=== PATIENT | male | born 1935 | race Caucasian/White ===

== ENCOUNTER 2016-08-28 15:07 | Outpatient (CLI) | payer MEDICARE, OTHER | END 2016-08-28 15:08 | disposition home or self-care (01) | DX: I10 Essential (primary) hypertension (principal); I71.00 Dissection of unspecified site of aorta ==

== ENCOUNTER 2016-10-30 08:29 | Outpatient (CLI) | payer MEDICARE, OTHER | END 2016-10-30 08:30 | disposition home or self-care (01) | DX: I10 Essential (primary) hypertension (principal); K20.9 Esophagitis, unspecified ==

== ENCOUNTER 2016-11-20 14:37 | Day surgery (SDC) | payer MEDICARE, OTHER ==
[2016-11-20] MEDS ORDERED: MIDAZOLAM 2 MG/2 ML VIAL IVP ONE (17:07)
[2016-11-20] MEDS ORDERED: fentaNYL 100 MCG/2 ML VIAL IVP ONE (17:07)
[2016-11-20] MEDS ORDERED: LIDO GARGLE 30 ML BOTTLE PO ONE (17:15)
[2016-11-20] MEDS ORDERED: BENZOCAINE/TETRACAINE/BUTAMBEN SPRAY 56 GM TOP ONE (17:15)
[2016-11-20] MEDS ORDERED: LACTATED RINGERS 1,000 ML IV ONE ×2 (17:16)
[2016-11-20 17:31] VITALS: BP 178/60
== END 2016-11-20 14:38 | disposition home or self-care (01) ==
LOC: SDS 14:37
PROVIDERS: ATTEND Surgery
PROC: 0DB38ZX Excision of Lower Esophagus, Via Natural or Artificial Opening Endoscopic, Diagnostic (ICD-10-PCS; principal; 2016-11-20 16:00)
DX: C15.5 Malignant neoplasm of lower third of esophagus (principal); E11.9 Type 2 diabetes mellitus without complications; I10 Essential (primary) hypertension; K21.9 Gastro-esophageal reflux disease without esophagitis; K91.2 Postsurgical malabsorption, not elsewhere classified; R12 Heartburn; Z79.84 Long term (current) use of oral hypoglycemic drugs; Z87.891 Personal history of nicotine dependence
CPT/HCPCS: 43239; A9270; J7120; 88305; 88341; 88342; 88360

== ENCOUNTER 2016-11-23 12:39 | Outpatient (CLI) | payer MEDICARE, OTHER ==
[2016-11-23] MEDS ORDERED: IOVERSOL-300 50 ML VIAL PO ONE (14:55)
[2016-11-23] MEDS ORDERED: IOPAMIDOL-300 100 ML VIAL IVP ONE (14:55)
--- NOTE | 2016-11-23 17:05 | CT Report ---
CT OF THE CHEST WITH CONTRAST: 11/23/2016 CLINICAL INDICATION: Esophageal mass, biopsy-proven esophageal cancer, staging. TECHNIQUE: Axial CT images of the chest were obtained with 50 mL of Isovue-300 intravenously (renal d ysfunction). No previous CT is available for comparison. FINDINGS: The heart and great vessels demonstrate atherosclerotic calcification. There is calcified pleural plaquing, compatible with previous asbestos exposure. A mass is seen arising from the distal esophagus, measuring approximately 3.5 cm in diameter. There is a lymph node posterior to the trachea on the right side, at the level of T2, measuring 1.8 cm. The lungs demonstrate basilar fibrosis. The re is a noncalcified pulmonary nodule in the posterior right upper lobe, measuring 11 x 8 mm, suspici ous for pulmonary metastatic disease. No effusion or pneumothorax is present. The osseous structures demonstrate degenerative changes. IMPRESSION: DISTAL ESOPHAGEAL MASS, WITH ADENOPATHY AT THE THORACIC INLET AND RIGHT PULMONARY NODULE , LIKELY REPRESENTING METASTATIC DISEASE. In accordance with CT protocol optimization, one or more of the following dose reduction techniques w ere utilized for this exam: automated exposure control, adjustment of mA and/or KV based on patient size, or use of iterative reconstructive technique. JOB #: [id number] EXT JOB #:[id number]
--- NOTE | 2016-11-23 17:09 | CT Report ---
CT ABDOMEN AND PELVIS WITH CONTRAST: 11/23/2016 CLINICAL INDICATION: Esophageal cancer staging. Axial CT images of the abdomen and pelvis were obtained with 50 mL Isovue-300 intravenously (renal dy sfunction) as well as oral contrast. In accordance with CT protocol optimization, one or more of the following dose reduction techniques w ere utilized for this exam: automated exposure control, adjustment of mA and/or KV based on patient size, or use of iterative reconstructive technique. Please also refer to separate CT of the chest of the same day. ABDOMEN: There is retroperitoneal adenopathy present, with the largest node, at the level of the bolivar phragm just to the left of the aorta measuring 2.8 x 1.9 cm, compatible with metastases. There is a hypodense lesion in the posteromedial right lobe of the liver, measuring 4.3 x 3.1 cm, and a hypodens e lesion in the inferior right lobe of the liver, measuring 1.9 x 1.7 cm, both suspicious for hepatic metastases. The kidneys demonstrate cortical atrophy and cysts. The spleen appears unremarkable as does the pancreas and adrenal glands. The gallbladder is not dilated. No bowel dilatation, free ga s, or free fluid is present. An abdominal aortic stent graft is in place. PELVIS: Sigmoid diverticulosis is present, without CT evidence of diverticulitis. No pelvic adenopa thy or free fluid is present. Osseous structures demonstrate degenerative changes. IMPRESSION: HEPATIC LESIONS AND RETROPERITONEAL ADENOPATHY, COMPATIBLE WITH METASTATIC DISEASE. JOB #: [id number] EXT JOB #:[id number]
== END 2016-11-23 12:40 | disposition home or self-care (01) ==
LOC: DI 12:39
PROVIDERS: ATTEND Surgery
DX: K22.9 Disease of esophagus, unspecified (principal); R91.1 Solitary pulmonary nodule; R59.0 Localized enlarged lymph nodes; K76.9 Liver disease, unspecified
CPT/HCPCS: 71260; 74177; Q9967

== ENCOUNTER 2016-12-27 10:46 | Outpatient (CLI) | payer MEDICARE, OTHER ==
--- NOTE | 2016-12-27 20:12 | CONSULTATION NOTE ---
DATE OF CONSULTATION: 12/27/2016 00:00:00 REQUESTING PROVIDER: Rob Hammond MD. TIME OF VISIT: 11:45-12:45. TOPIC: Initial palliative care consult. Thank you for asking the palliative care consult service to be involved in the care of your patient. I am asked to provide support for pain and symptom management, as well as goals of care. HISTORY OF PRESENT ILLNESS: This is a 81-year-old gentleman who has developed over the last few month s increasing difficulty with worsening dysphagia and difficulty tolerating solid food. He lost about 30 pounds in the three months. He underwent upper endoscopy with Dr. Bah on 11/20/2016 which lindsay wed nearly complete obstruction of the lower esophagus with biopsy that showed poorly differentiated adenocarcinoma. In further staging he was found to have a mass in the distal esophagus, adenopathy po sterior to the trachea, right upper lower lobe nodule, retroperitoneal adenopathy with node measuring 2.8 x 1.9 cm size at the level of the diaphragm, which is interesting where he has most of his pain. He also has liver metastasis with 2 lesions on the left 4 x 3 x 3.1 cm and in the right inferior lob e 1.9 x 1.7. He has had actually fairly good health. Previous to this, he used to walk about a mile b ut quit several years ago related to pain in his right hip. He has struggled with diabetes, though, c urrently with his weight loss, his blood sugars have been in the 80s and 90s. We are meeting for the first time today to talk about his pain, symptom management and support needs. Mostly focused on buil ding rapport, as well as looking at things that might be of support for quality of life. PAST MEDICAL HISTORY: Includes hypertension, diabetes, frequent reflux, history of a stomach ulcers, diverticulitis. PAST SURGICAL HISTORY: Includes surgery to a benign tumor in 1995, repair of a AAA about 4-5 years ag o with a stent. ALLERGIES: NO KNOWN ALLERGIES. CURRENT MEDICATIONS: Current medications are somewhat minimal at this point in time. 1. He gets a testosterone injection once a month. 2. He has ondansetron 8 mg 1 tab q.8h. ODT available for nausea. 3. Uses Miralax for constipation. 4. Recently was started on morphine 20 mg/ml 0.25 ml which = 5 mg for pain. SYMPTOM BURDEN: The patient does report pain. It is mostly located actually on the left side. He feel s like "it is coming through my ribs." This is fairly persistent in nature, though he only takes his medications intermittently. Of note, he has actually gotten relief with Tylenol. He has used the morp esther 5 mg, but perceives that he gets sedated on this. He has been able to sleep as his anxiety has d iminished. He does report fatigue with his weight loss, his activity tolerance has gone down. He parveen es any nausea. He has had vomiting in the past and this is more attributed to his obstructive symptom s. He has had intermittent constipation. He does perceive himself as somewhat depressed and tearful. Continues with some anxiety and is somewhat concerned currently around his quality of life. SOCIAL HISTORY: He is to Brynn, they have been 59 years. 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 He was having lung problems with that and quit. He was having increased shortness of breath and cough and changes. He then retired to [place] to help his 's mother on the farm where the y continue to live. He has worked for the [employer] but has been retired over 16 years. 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 His herself underwent treatment for breast cancer, so [facility]. They do have 3 sons, 2 of which live in the neighborhood are quite supportive. The other one [place] with grandchildren and great grandchildren. They are very close and have a close community of friends. FAMILY HISTORY: Father of heart attack at 62. Mother at 96 of old age. He does have a histo ry of aunts with cancer and his brother of cancer, supposedly from exposure to Agent [place]. REVIEW OF SYSTEMS: The patient does report 30 pound weight loss over 2 to 3 months. He is currently a t 163, his baseline is 190. He reports fatigue. Denies headaches, no night sweats. EYES: He does wear glasses. ENT: He does have hearing loss. CARDIOVASCULAR: Has a history of hypertension. No history of swelling and has tried blood pressure me dication in the past. Currently not on anything. RESPIRATORY: He does have shortness of breath with activity. GASTROINTESTINAL: He is currently on a liquid diet, mostly on Ensure, has added mashed potatoes with butter. He is starting to regain some weight, has not had any further obstructive vomiting. He does h ave some intermittent constipation for which he uses prune juice. GENITOURINARY: He has frequent urination, but no pain. He is up a couple times a night. MUSCULOSKELETAL: He does have some weakness. 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 SKIN: Denies any problems. NEUROLOGIC: Denies numbness or tingling, dizziness, headache. PSYCHIATRIC: Does admit to depression and anxiety. ENDOCRINE: He has had diabetes, though this is doing much better and was managed on metformin before. HEMATOLOGIC/IMMUNOLOGIC: Has not had any recent infections. He will be getting iron transfusions. PERFORMANCE STATUS: The patient currently is able to manage all his ADLs. He still works in the [employer] and does his projects. He has had decrease in intake, but this is improving. I would put him at a [facility] performance status at 80%. PALLIATIVE CARE DISCUSSION: Who is present, myself, the patient and his , Brynn. The patient is somewhat suspect of palliative care. I did spend some time explaining regarding the role as far as pardo pport for pain and symptom management and supporting them through this time of difficult decision german ing and for emotional support for both he and her. Did acknowledge their feelings of vulnerability, s adness and distress. They are of course "hoping for a miracle" and we did discuss about hoping for th e best, but also looking at things that might be of support in preparation in case of the worst. I di d not venture into advanced directives, but more into what is most important to them, which at this p oint in time is family investing as much as they can into his treatment and trying to stay positive. 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 He is just now starting the palliative chemotherapy with the hope for improving quality and quantity of life. Is welcoming of palliative care support at this point in time. RECOMMENDATIONS/COUNSELING DONE: 1. Pain of neoplastic origin. I suspect his pain etiology is most likely the adenopathy from his desc ription noted at the diaphragm of left of the aorta appears where his location and intensity of that. He has no increased shortness of breath with this. Suspect it is a pressure or neuropathic in nature pain. I did instruct him for baseline since Tylenol was actually effective, he does have liquid Tyle nol to schedule t.i.d. 1000 mg of Tylenol for relief. He does not like being sedated. His goal is to be more awake and we also discussed using the morphine in juice as a barrier for him taking it as it is a bitter taste, I instructed to put it in just a little bit of cranberry or grape juice in a shot glass and take it that way. If he feels too sedated he can even take half of a 5 mg just a little bit more often for relief. Both he and his confirms understanding they do have 60 mL and no need fo r refill at this point in time. 2. 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 The patient was instructed on the need for goal of a bowel movement every day to use either half or full caps of MiraLax or if prune juice is effective to cont inue with this, but it is important given his early satiety and anorexia to continue with good bowel management. 3. Weight loss secondary to obstructive symptoms, the patient actually does fine with supplements. I did provide a prescription for Ensure at the [facility] to help support cost savings. I did encour age small frequent feedings. 4. Chemotherapy side effects. Did review the use of Imodium they had not picked up their hanl-ysn-[id number] nter medication yet regarding that. Also, instructed on ondansetron would be quite problematic if he did have vomiting given his current obstructive symptoms. 5. Coping with adjustment to illness. Normalized patient's feeling of vulnerability and feeling overw helmed that over at diagnosis and concerns about the uncertainty ahead. Psychosocial support was offe red. 6. Advanced care planning. Will defer this to a future visit. TIME SPENT: 60 minutes with greater than 50% of this done in counseling and coordination of care, ant icipatory guidance and instruction on pain and symptom management. JOB #: [id number] EXT JOB #:[id number]
== END 2016-12-27 10:47 | disposition home or self-care (01) ==
LOC: PC 10:46
PROVIDERS: ATTEND Nurse Practitioner Adult Health
DX: Z51.5 Encounter for palliative care (principal); G89.3 Neoplasm related pain (acute) (chronic); C15.5 Malignant neoplasm of lower third of esophagus; C78.7 Secondary malignant neoplasm of liver and intrahepatic bile duct; C78.00 Secondary malignant neoplasm of unspecified lung; K59.00 Constipation, unspecified; R63.4 Abnormal weight loss; E11.9 Type 2 diabetes mellitus without complications; M25.551 Pain in right hip; I10 Essential (primary) hypertension; K21.9 Gastro-esophageal reflux disease without esophagitis; Z87.11 Personal history of peptic ulcer disease; Z87.19 Personal history of other diseases of the digestive system; R11.0 Nausea; Z79.899 Other long term (current) drug therapy; F32.9 Major depressive disorder, single episode, unspecified; F41.9 Anxiety disorder, unspecified; R06.09 Other forms of dyspnea; R35.0 Frequency of micturition
CPT/HCPCS: 99205

== ENCOUNTER 2017-01-03 11:12 | Outpatient (CLI) | payer MEDICARE, OTHER ==
--- NOTE | 2017-01-03 22:51 | CONSULTATION NOTE ---
DATE OF CONSULTATION: 01/03/2017 00:00:00 REQUESTING PROVIDER: TIME OF VISIT: 11:45-12:30. TOPIC: Followup palliative care consult. Thank you for asking the palliative care consult service to be involved in the care of your patient. I am asked to provide support for pain and symptom management, as well as goals of care and transitio n planning. HISTORY OF PRESENT ILLNESS UPDATE: This is a 81-year-old gentleman who has stage IV esophageal cancer with metastatic disease to the liver and lung and likely bone. He is receiving palliative chemothera py including carboplatin /Taxol. He does have a partial esophageal obstruction, this continues to imp rove. He has actually gained about 4 pounds over this last week, though, I am somewhat concerned this may also include some fluid weight. He does present today with a fairly full abdomen, it is not taut , but he has developed some lower extremity edema about 1-2+ pitting, this is a new symptom for him. He though does report that his pain has been improving. His pain has been located on the left side, h ad attributed this most likely to his adenopathy. It had been persistent in nature and now it is res olved. He had been instructed to try nzshel-bye-plplq Tylenol. He had tried it when he got home after chemotherapy last week, and had attributed his dizziness, though, I suspect this is more related to his infusion and support meds. Currently, today, though he reports no pain. He actually has been taki ng the morphine 5 mg at bedtime, though he reports no discomfort. He dislikes the sedation from it. SYMPTOM BURDEN: The patient has had some fatigue, particularly in the last 24-48 hours. Of note, his hematocrit has dropped to 29.9, hemoglobin 10.0, RBCs 3.46 as well as his white count down to 2.3. He denies having experienced any nausea with his chemotherapy. This last week his appetite remains fair . He is still continuing on mostly liquid soft diet. He has had some shortness of breath over the las t 24 hours, but no cough. Please see palliative care discussion regarding depression and continues to hope for the best. He does report his constipation has been controlled with prune juice. SOCIAL HISTORY: He is to his , Brynn, they have been for 59 years. They have 3 s ons, are a very close family. He reports he tends to be somewhat of a loaner when asked as far as wha t kind of support he has. 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 REVIEW OF SYSTEMS: ENT: Denies sore throat. He does have mild hearing loss. CARDIOVASCULAR: Denies chest pain. RESPIRATORY: Denies cough, noted shortness of breath as above. GASTROINTESTINAL: Having regular bowel movements with prune juice and some early satiety. GENITOURINARY: No difficulty with voiding. MUSCULOSKELETAL: Some generalized overall weakness and stiffness. Does have osteoarthritis, particula rly in his right hip. INTEGUMENTARY: Does have a recent hematoma from a branch falling on his hand. The skin is not opened. NEUROLOGIC: Denies numbness or tingling but does have some cold sensation in his hands. PSYCHIATRIC: The patient does present with depressive symptoms and tearfulness. ENDOCRINE: No history of hypothyroidism or diabetes. HEMATOLOGIC/IMMUNOLOGIC: No recent infections. He is somewhat pancytopenic today. PHYSICAL EXAMINATION: GENERAL APPEARANCE: He does appear somewhat flushed. He is quite tearful. EYES: Normal on inspection. ENT: Mucous membranes moist. NECK: Trachea midline. No lymphadenopathy. RESPIRATORY: His breath sounds are clear. CARDIOVASCULAR: His pulse is regular rhythm at about 88. ABDOMEN: Somewhat full and rounded. Bowel tones distant. SKIN: His hands are quite cold to touch. Hematoma across the back of his palm. No open areas. EXTREMITIES: As noted above, he does have lower extremity edema of probably 1+ mid calf. His hands an d feet are cool to touch. PERFORMANCE STATUS: The patient is still managing to do most of his chores. He is experiencing some a ctivity tolerance. He is trying to continue with his garden and his projects and mowing his lawn. PALLIATIVE CARE DISCUSSION/WHO IS PRESENT: Myself, the patient and his , Brynn. The patient is q uite tearful today. We did discuss just acknowledging the difficulty of their journey this last few w eeks, his feelings of vulnerability and sadness, trying to normalize this for them. continues to kind of pipe up and say hoping for a miracle, the patient seems much more tender regarding this. The y do have an appointment upcoming on 01/09/[address] Fitzgerald for Port-A-Cath placement. His goal s are to try and hope for the best and continue on with his palliative chemotherapy. IMPRESSION: This is a lauren 81-year-old gentleman who has stage IV esophageal cancer with liver and lung mets starting on palliative chemotherapy. Does present with depressive symptoms and tearfulness today establishing rapport. RECOMMENDATIONS/COUNSELING DONE: 1. Pain of neoplastic origin. His pain does appear to have improved. He has not needed the Tylenol, b ut did recommend to use that for breakthrough pain. He does have some morphine, still has over a jeff le and a half left, but does continue to dislike the side effects of this. Does not present with the pain severity and needing this at this point in time. 2. Constipation, multifactorial in origin. They have got the MiraLax available, but currently being m anaged with the prune juice with decreased morphine intake. 3. Weight loss secondary to obstructive symptoms. He is currently on a liquid diet, is managing to ge t adequate calories and fluids and some soft food as far as mashed potatoes and soft boiled eggs. 4. Side effects from chemotherapy, currently has done well. Presents today with some pancytopenia and some increased fatigue and mild shortness of breath, but overall has tolerated this fine. 5. Depressive symptoms. Did counseling regarding depression, normalizing his current reaction to his situation. I did discuss if it remains persistent or pervasive that we can consider implementing an a ntidepressant if needed. Also recommended looking at ways that he has coped in the past. He has used his family. 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 Did discuss he can continue to process some of this during our meetings. TIME SPENT: 45 minutes with greater than 50% of this done in counseling and coordination of care, jordana ghing benefits and burdens of ongoing opiate therapy, management of depression, and anticipatory guid ance. JOB #: [id number] EXT JOB #:[id number]
== END 2017-01-03 11:13 | disposition home or self-care (01) ==
LOC: PC 11:12
PROVIDERS: ATTEND Nurse Practitioner Adult Health
DX: Z51.5 Encounter for palliative care (principal); G89.3 Neoplasm related pain (acute) (chronic); C15.9 Malignant neoplasm of esophagus, unspecified; C78.7 Secondary malignant neoplasm of liver and intrahepatic bile duct; C78.00 Secondary malignant neoplasm of unspecified lung; K59.00 Constipation, unspecified; Z79.899 Other long term (current) drug therapy; R60.0 Localized edema; R53.83 Other fatigue; R06.02 Shortness of breath; R68.81 Early satiety; R53.1 Weakness; M16.11 Unilateral primary osteoarthritis, right hip; D61.818 Other pancytopenia; R68.89 Other general symptoms and signs
CPT/HCPCS: 99215

== ENCOUNTER 2017-01-05 07:09 | Outpatient (CLI) | payer MEDICARE, OTHER | END 2017-01-05 07:10 | disposition home or self-care (01) | LOC: RT 07:09 | PROVIDERS: ATTEND Nurse Anesthetist, Certified Registered | DX: Z01.810 Encounter for preprocedural cardiovascular examination (principal); C15.9 Malignant neoplasm of esophagus, unspecified | CPT/HCPCS: 93005 ==

== ENCOUNTER 2017-01-09 09:31 | Day surgery (SDC) | payer MEDICARE, OTHER ==
[2017-01-09] MEDS ORDERED: LACTATED RINGERS 1,000 ML IV ONE ×2 (10:20→15:18)
[2017-01-09] MEDS ORDERED: MIDAZOLAM 2 MG/2 ML VIAL IVP ONE (14:30)
[2017-01-09] MEDS ORDERED: fentaNYL 100 MCG/2 ML VIAL IVP ONE (14:30)
[2017-01-09] MEDS ORDERED: PROPOFOL 200 MG/20 ML VIAL IVP ONE (14:30)
[2017-01-09] MEDS ORDERED: LIDOCAINE-MPF 2% 5 ML VIAL IM ONE (14:30)
[2017-01-09] MEDS ORDERED: BUPIVACAINE 0.5% PF 30 ML VIAL SUBQ ONE ×2 (14:59→15:03)
[2017-01-09] MEDS ORDERED: LIDOCAINE 1%-EPI 1:100000 30 ML MDV SUBQ ONE (15:01)
[2017-01-09 15:38] VITALS: BP 163/58
--- NOTE | 2017-01-09 15:43 | XRAY Report ---
INTRAOPERATIVE PORT PLACEMENT: 01/09/2017 CLINICAL INDICATION: Port placement. FINDINGS: Single intraoperative matrix image demonstrates a left-sided port terminating in the right atrium. Six seconds of fluoroscopy time was provided to Dr. Fitzgerald; one spot image obtained. IMPRESSION: DOCUMENTATION OF INTRAOPERATIVE IMAGING AND FLUOROSCOPY TIME. JOB #: [id number] EXT JOB #:[id number]
--- NOTE | 2017-01-09 17:33 | XRAY Report ---
FRONTAL CHEST: 01/09/2017 CLINICAL INDICATION: Postop Port-A-Cath placement. Frontal view of the chest demonstrates a normal cardiac silhouette. Left jugular port terminates in the right atrium. The cardiac silhouette is not enlarged. Pleural calcifications are present. No e ffusion or pneumothorax is present. IMPRESSION: LEFT JUGULAR PORT TERMINATING IN THE RIGHT ATRIUM. NO PNEUMOTHORAX. JOB #: [id number] EXT JOB #:[id number]
--- NOTE | 2017-01-10 10:51 | OPERATIVE REPORT ---
DATE OF SURGERY: 01/09/2017 00:00:00 PREOPERATIVE DIAGNOSIS: Esophageal cancer. POSTOPERATIVE DIAGNOSIS: Esophageal cancer. PROCEDURE: Port-A-Cath placement. SURGEON: Trina Fitzgerald MD Anesthesiologist: JUNI Kamara ANESTHESIA: Monitored Anes Care FINDINGS: After obtaining informed consent from patient, he was brought into the operating room and positioned on the operating table in the supine position , taking note of pressure points. He was administered sedation and 2 grams of Ancef. He was then prepped and draped in the usual sterile fashion, and a timeout was taken according to protocol. Local anesthetic 5 mL was inserted at the level of the left clavicle. The patient was positioned in Trendelenburg.Using the finder needle, the subclavian space was entered. However , I was not able to access the subclavian vein after 2 attempts. Under ultrasound guidance, I then turned my attention to the left IJ. The IJ was easily visualized under ultrasound guidance and accessed with the finder needle. The guidewire was easily threaded into the internal jugular vessel. Fluoroscopic guidance was utilized to visualize the wire descending across the midline toward the diaphragm. An additional 5 mL of local anesthetic was inserted into the left chest wall to create the Port-A-Cath pocket. A 2 cm incision was then created and deepened down to the clavipectoral fascia. Using electrocautery, the pocket was created. An additional 10 mL of local was inserted toward the neck insertion site for the tunneling device. The #11 blade was then utilized to open up the neck insertion site slightly. The tunneling device was utilized to tunnel the catheter from the port cavity to the neck and needle insertion site. The catheter was brought out in this manner. Under fluoroscopic guidance, the dilator and sheath were introduced over the guidewire in Seldinger technique. The sheath was seen crossing the midline and descending toward the diaphragm. The wire and dilating catheter were removed. The Port-A-Cath catheter was then inserted into the sheath, and the peel-away sheath was peeled away. Fluoroscopy demonstrated the catheter to be in good position. The catheter was then cut to an appropriate length and connected to the port. The port was then inserted into the port cavity and sutured to the clavipectoral fascia with 3-0 Prolene in 2 locations. The port was then accessed with the Benz needle through the skin to ensure adequate functioning. It withdrew easily and flushed easily. The port was flushed with heparinized saline. The incision was then closed with 3-0 Vicryl and 4-0 Monocryl. The neck incision was closed with 4-0 Monocryl. Dermabond was applied. Patient was taken to recovery in stable condition. ESTIMATED BLOOD LOSS: 5 mL. COMPLICATIONS: None. SPECIMENS: None. JOB #: [id number] EXT JOB #:[id number] [facility]OSPITALEnrique
== END 2017-01-09 09:32 | disposition home or self-care (01) ==
LOC: SDS 09:31
PROVIDERS: ATTEND Surgery
PROC: 02H633Z Insertion of Infusion Device into Right Atrium, Percutaneous Approach (ICD-10-PCS; 2017-01-09)
PROC: 0JH63XZ Insertion of Tunneled Vascular Access Device into Chest Subcutaneous Tissue and Fascia, Percutaneous Approach (ICD-10-PCS; principal; 2017-01-09 12:15)
DX: C15.9 Malignant neoplasm of esophagus, unspecified (principal); C79.9 Secondary malignant neoplasm of unspecified site; Z82.49 Family history of ischemic heart disease and other diseases of the circulatory system; F17.200 Nicotine dependence, unspecified, uncomplicated; I10 Essential (primary) hypertension; E78.5 Hyperlipidemia, unspecified; E11.9 Type 2 diabetes mellitus without complications; F32.9 Major depressive disorder, single episode, unspecified
CPT/HCPCS: 36561; 71010; C1788; J7120